=== PATIENT | female | born 1965 | race American Indian/Alaskan Native ===

== ENCOUNTER 2017-06-27 10:08 | Emergency (ER) | payer MEDICAID ==
[~2017-06-27] VITALS: Ht 162.6 cm; Wt 81.0 kg
[2017-06-27 10:10] VITALS: Ht 162.6 cm; Wt 81.0 kg
[2017-06-27] MEDS ORDERED: KETOROLAC 30 MG INJ IM STA (10:45)
[2017-06-27] MEDS ORDERED: IBUPROFEN 600 MG TAB PO ONE (11:00)
--- NOTE | 2017-06-27 11:19 | RADRPT ---
PROCEDURE: US Lower extremity Venous. CLINICAL INDICATION: Left leg edema, pain TECHNIQUE: Multiple sonographic images of the left lower extremity deep venous system was obtained utilizing grayscale, color-flow, compressive sonography and doppler imaging with augmentation. The images were reviewed on a PACS workstation. COMPARISON: None. FINDINGS: There is normal compressibility and flow within the left common femoral, femoral, posterior tibial, peroneal and popliteal veins. There is a 2.5 x 0.9 cm hypoechoic structure in the subcutaneous soft tissues of the left foot, susp icious for hematoma. RPTAT: AA IMPRESSION: No sonographic evidence for deep venous thrombosis. Possible hematoma in the subcutaneous soft tissues of the left foot. Clinical correlation and follow-up is needed. .Jack Meneses MD, Date Time Electronically viewed and signed by .Jack Meneses MD, on 06/27/2017 11:19 .S/
[2017-06-27] MEDS ORDERED: ACET500C5 PO (11:43)
--- NOTE | 2017-06-27 17:45 | ERD ---
ER Documentation Chief Complaint Date/Time DATE: 06/27/17 TIME: 17:37 Chief Complaint left foot swelling/pain x this am HPI 52-year-old female brought in by her daughter complaining of left foot pain and swelling since this morning. Patient stated that she did not have the pain when she got up this morning. She went to the bathroom, after she got back to bed after the bathroom, she noticed the pain in her dorsal left foot. Full has becoming more swollen over time. Patient stated that she has "circulation problems", is taking Doxium to help thin her blood. She is concerned about possible blood clots. Denies trauma. Denies pruritus. Denies shortness of breath. ROS All systems reviewed and are negative except as per history of present illness. Medications Home Meds Active Scripts Acetaminophen* (Tylophen*) 500 Mg Capsule, 1 CAP PO Q6H Y for PAIN AND OR ELEVATED TEMP, #20 CAP Prov:EVA DEUTSCH. HUB BANDER 06/27/17 Allergies Allergies: Coded Allergies: No Known Allergy (Unverified , 06/27/17) PMhx/Soc Medical and Surgical Hx: pt denies Surgical Hx Hx Miscellaneous Medical Probl: Yes (IMPAIRED CIRCULATION) Hx Alcohol Use: No Hx Substance Use: No Hx Tobacco Use: No Smoking Status: Never smoker Physical Exam Vitals Vital Signs Date Time Temp Pulse Resp B/P Pulse Ox O2 Delivery O2 Flow Rate FiO2 06/27/17 10:10 97.9 72 18 139/81 97 Physical Exam General: Well-developed, well-nourished, conscious and coherent, in no distress Skin: Warm and dry without rash, good texture and turgor Head: Normocephalic without evidence of trauma Eyes: Sclera and conjunctivae normal; pupils equal, round, and reactive to light; extraocular movements are intact Chest: Normal AP diameter. Good expansion without retractions. Nontender. Lungs are clear to auscultate bilaterally with good tidal volume Heart: Regular rate and rhythm. No murmur, rub, or gallops heard Extremities: Full range of motion. Good strength bilaterally. No clubbing, cyanosis, or edema. Peripheral pulses are intact. Sensation intact. There is a 1.5 cm area of indurated lesion, slightly erythematous on the dorsal left foot, tender. There is about 5-7 cm area of ecchymosis, slightly swollen surrounding the indurated area. Neuro: Alert and oriented 4, GCS 15. Cranial nerves grossly intact. Motor and sensory exams nonfocal. Moves all extremities. Speech clear. Gait normal Results 24 hrs Current Medications Medications (Trade) Dose Ordered Sig/Walter Route PRN Reason Start Time Stop Time Status Last Admin Dose Admin Ibuprofen (Motrin) 600 mg ONCE ONCE PO 06/27/17 11:00 06/27/17 11:00 DC Ketorolac Tromethamine (Toradol) 30 mg ONCE STAT IM 06/27/17 10:45 06/27/17 10:46 DC 06/27/17 11:18 PROCEDURE: US Lower extremity Venous. CLINICAL INDICATION: Left leg edema, pain TECHNIQUE: Multiple sonographic images of the left lower extremity deep venous system was obtained utilizing grayscale, color-flow, compressive sonography and doppler imaging with augmentation. The images were reviewed on a PACS workstation. COMPARISON: None. FINDINGS: There is normal compressibility and flow within the left common femoral, femoral , posterior tibial, peroneal and popliteal veins. There is a 2.5 x 0.9 cm hypoechoic structure in the subcutaneous soft tissues of the left foot, suspicious for hematoma. RPTAT: AA IMPRESSION: No sonographic evidence for deep venous thrombosis. Possible hematoma in the subcutaneous soft tissues of the left foot. Clinical correlation and follow-up is needed. .Jack Meneses MD, MD Date Time Electronically viewed and signed by .Jack Meneses MD, on 06/27/2017 11: 19 .S/ CC: EVA DEUTSCH HUB BANDER Procedures/MDM Well-appearing 52-year-old female complaining of left foot pain 1 day. Patient concerned about blood clot. Doppler ultrasound was obtained. No DVT was noted on ultrasound. There is a superficial hematoma noted on her dorsal left foot. I explained the patient that superficial hematoma are not dangerous , it does not require any further treatment. Patient given ibuprofen and Toradol in the ED for pain. Patient appears well, stable for discharge and outpatient management. Medical decision making shared with patient and family. Education provided to patient and family. Patient and family expressed understanding of the plan. Medications on discharge: Tylenol. Follow-up: Primary care provider in 2-3 days or return to ED if worse. Disclaimer: Inadvertent spelling and grammatical errors are likely due to EHR/ dictation software use and do not reflect on the overall quality of patient care. Also, please note that the electronic time recorded on this note does not necessarily reflect the actual time of the patient encounter. Departure Diagnosis: Primary Impression: Traumatic hematoma of left foot Condition: Stable Patient Instructions: Contusion, Foot [facility] Usted se bundy hecho un examen mdico de control que le indica que no est en rosa m condicin que requiera tratamiento urgente en el Departamento de Emergencia. Un estudio ms profundo y el tratamiento de mcmahon condicin pueden esperar sin ningn riesgo hasta que usted sea atendida/o en el consultorio de mcmahon mdico o rosa m cl sharla. Es responsabilidad suya arreglar rosa m zack para el seguimiento del louisa. MANEJO DE CONDICIONES NO URGENTES EN EL FUTURO 1) Si usted tiene un mdico de atencin primaria: Usted debera llamar a mcmahon mdico de atencin primaria antes de venir al departamento de emergencia. Despus de las horas de consultorio, mcmahon doctor o mcmahon asociado/a est disponible por telfono. El mdico o enfermero de valencia en el servicio telefnico puede asesorarle por daniel medio para atender el problema, o louisa contrario se puede programar rosa m zack. 2) Si usted no tiene un mdico de atencin primaria: Llame al mdico o clnica de referencia que aparece abajo matt las horas de consultorio para hacer rosa m zack para que le vean. CLINICAS: [facility] [phone] [id number] [facility] [phone] [facility] [phone] [place] [id number] [phone] [place] [id number] [phone] [facility] [phone] [address] Additional Instructions: Llame al doctor MAANA y alex rosa m ZACK PARA DENTRO DE 2-3 [place].Dgale a la secretaria que nosotros le instruimos hacer esta zack.Avise o llame si mcmahon condicin se empeora antes de la zack. Regresa aqui si peor o no mejor. EVA DEUTSCH. MEJIA Jun 27, 2017 17:45
== END 2017-06-27 11:53 | disposition home or self-care (01) ==
LOC: FTE 10:08
DX: S90.32XA Contusion of left foot, initial encounter (principal); R40.2412 Glasgow coma scale score 13-15, at arrival to emergency department; X58.XXXA Exposure to other specified factors, initial encounter; Y92.002 Bathroom of unspecified non-institutional (private) residence as the place of occurrence of the external cause
CPT/HCPCS: 93971; J1885; 96372

== ENCOUNTER 2018-07-09 14:09 | Emergency (ER) | END 2018-07-09 19:35 | disposition home or self-care (01) ==